=== PATIENT | female | born 1955 | race Caucasian/White ===

== ENCOUNTER 2019-02-12 07:49 | Day surgery (SDC) | payer BC, MEDICARE ==
[2019-02-10 09:06] VITALS: BMI 20.5
[~2019-02-12 07:49] MED LIST: LACTATED RINGERS 1,000 ML IV SCH; LIDOCAINE 1% INJ 10MG/ML (20 ML MDV) ONE; PROPOFOL 10 MG/ML 20 ML VIAL IV ONE
[2019-02-12 08:01] VITALS: TEMP 97.8
[2019-02-12] MEDS ORDERED: LACTATED RINGERS 1,000 ML IV ONE (08:01)
[2019-02-12] MEDS ORDERED: LIDOCAINE 1% 20 ML VIAL (10MG/ML) FOR IV START INTRADERMA ONE (08:01)
[2019-02-12] MEDS ORDERED: MIDAZOLAM (PF) 2 MG/2 ML VIAL IVP ONE ×2 (08:30→08:36)
[2019-02-12] MEDS ORDERED: LABETALOL 5 MG/ML VIAL MDV IVP ONE (08:51)
--- NOTE | 2019-02-12 09:18 | P.PCN ---
Date of Procedure: 02/12/19 Procedure(s) Performed: BRIEF HISTORY: Patient is a 63-year-old pleasant female scheduled for an elective colonoscopy as a part of screening for colon neoplasia. PROCEDURE PERFORMED: Colonoscopy with biopsy and snare polypectomy. PREOPERATIVE DIAGNOSIS: Screening for colon cancer IV sedation per Anesthesia. PROCEDURE: After informed consent was obtained, the patient, was brought into the endoscopy unit. IV sedation was administered by Anesthesia under continuous monitoring. Digital rectal examination was normal. Initially the Olympus CF-160 flexible video colonoscope was then inserted in the rectum, gradually advanced into the cecum without any difficulty. Careful examination was performed as the scope was gradually being withdrawn. Ileocecal valve and the appendiceal orifice were visualized and appeared normal. Prep was excellent. Mucosa of the cecum ascending colon, transverse colon, descending colon, sigmoid colon, and rectum appeared normal. There were a few scattered patchy areas of erythema also noted in the sigmoid colon which was biopsied. Retroflexion was performed in the rectum and no lesions were seen. The patient tolerated the procedure well. IMPRESSION: 1 cm broad-based ascending colon polyp status post polypectomy Patchy areas of scattered erythema noted in the cecum ascending colon and sigmoid colon with normal appearing intervening mucosa status post biopsy RECOMMENDATIONS: Findings of this examination were discussed with the patient well as her family. She was advised to follow with the biopsy results. If the biopsy shows adenoma, she can have a repeat colonoscopy in 3 years.
[2019-02-12 10:11] VITALS: BP 200/98; PULSE 77; RESP 17
--- NOTE | 2019-02-15 13:51 | CDI ---
Date: 02/24/19 CDS/Court Stenographer Name: Juju Michael Phone: If any questions, call Jacqui Santiago Container Filler at [phone] Patient Name: Yasemin Betts Admit Date: 02/12/19 Discharge Date: 02/12/19 ATTENTION: The [facility] Coding Staff appreciate your assistance in clarifying documentation. Please respond to the clarification below the line at the bottom and electronically sign. The [facility] Coding staff will review the response and follow-up if needed. Please note: Queries are made part of the Legal Health Record. If you have any questions, please contact the Container Filler. Dear Dr. Cleaning, Please provide clarification as to the method of the polypectomy. Please clarify if snare, biopsy forceps, etc. Thank you for your kind consideration. One cm polyp note in the asc colon removed by snare polypectomy Rajwinder SHANNON
== END 2019-02-12 10:17 | disposition home or self-care (01) ==
LOC: ORWHC2ENDO 07:49
PROVIDERS: ATTEND Internal Medicine Gastroenterology
DX: Z12.11 Encounter for screening for malignant neoplasm of colon (principal); D12.2 Benign neoplasm of ascending colon; K52.9 Noninfective gastroenteritis and colitis, unspecified; Z86.010 Personal history of colon polyps; I10 Essential (primary) hypertension; E78.5 Hyperlipidemia, unspecified; Z87.891 Personal history of nicotine dependence; Z79.899 Other long term (current) drug therapy
CPT/HCPCS: 88305; 45380; 45385; J2001; J2704; J2250

== ENCOUNTER → 2022-03-04 | Outpatient (CLI) | payer MEDICARE ==
--- NOTE | 2022-03-05 03:08 | CA ---
Transthoracic Echo Report Name: Yasemin Singh Age: 66 Gender: F : 1955 Exam Date: 03/04/2022 15:09 Exam Location: [place] [facility] Ht (in): 63 Wt (lb): 130 Ordering Physician: Hector Velazquez DO Attending/Referring Phys: Delphine Fernandez PAC Sterile Processing Technician Iliana Delarosa RDCS Procedure CPT: Indications: R01.1 Cardia Murmur R60.9 Edema Cardiac Hx: Technical Quality: Fair Contrast 1: Total Dose (mL): Contrast 2: Total Dose (mL): MEASUREMENTS (Male / Female) Normal Values 2D ECHO LV Diastolic Diameter PLAX 3.2 cm 4.2 - 5.9 / 3.9 - 5.3 cm LV Systolic Diameter PLAX 2.3 cm IVS Diastolic Thickness 1.1 cm 0.6 - 1.0 / 0.6 - 0.9 cm LVPW Diastolic Thickness 1.3 cm 0.6 - 1.0 / 0.6 - 0.9 cm LV Relative Wall Thickness 0.7 RV Internal Dim ED PLAX 2.4 cm LA Volume 27.9 cm??? 18 - 58 / 22 - 52 cm??? M-MODE Aortic Root Diameter MM 2.5 cm LA Systolic Diameter MM 3.7 cm LA Ao Ratio MM 1.5 AV Cusp Separation MM 1.8 cm DOPPLER AV Peak Velocity 160.5 cm/s AV Peak Gradient 10.3 mmHg AV Mean Velocity 94.6 cm/s AV Mean Gradient 4.3 mmHg AV Velocity Time Integral 31.3 cm AI Peak Velocity 335.2 cm/s AI Peak Gradient 45.0 mmHg AI Pressure Half Time 391.1 ms LVOT Peak Velocity 88.4 cm/s LVOT Peak Gradient 3.1 mmHg MV Area PHT 2.8 cm??? Mitral E Point Velocity 76.5 cm/s Mitral A Point Velocity 87.5 cm/s Mitral E to A Ratio 0.9 MV Deceleration Time 273.0 ms TR Peak Velocity 240.1 cm/s TR Peak Gradient 23.1 mmHg Right Ventricular Systolic Press 27.9 mmHg FINDINGS Left Ventricle Normal left ventricular systolic function with no obvious regional wall motion abnormalities. Normal left ventricular diastolic filling pattern. Left ventricular cavity size normal. Mildly increased left ventricular wall thickness. Left ventricular ejection fraction is estimated at 55-60 %. Right Ventricle Normal right ventricular size and function. Right ventricular systolic pressure within normal limits. Right Atrium Normal right atrial size. Left Atrium Normal left atrial size. No evidence for an atrial septal defect. Mitral Valve Structurally normal mitral valve. Trace to mild mitral regurgitation. Aortic Valve Trileaflet aortic valve. Mild aortic regurgitation. Tricuspid Valve Structurally normal tricuspid valve. Mild tricuspid regurgitation. Pulmonic Valve Structurally normal pulmonic valve. Pericardium No pericardial effusion. Aorta Normal size aortic root and proximal ascending aorta. CONCLUSIONS Normal left ventricular dimension and systolic function. Mild LVH seen Mild aortic regurgitation See above for more details Previewed by: Dr. Bryson Gonzalez MD (Electronically Signed) Final Date: 05 Mar 2022 03:07
== END | disposition home or self-care (01) ==
LOC: RADECHMAIN 14:57
PROVIDERS: ATTEND Family Medicine
DX: I08.3 Combined rheumatic disorders of mitral, aortic and tricuspid valves (principal)
CPT/HCPCS: 93306